=== PATIENT | male | born 1985 | race Caucasian/White ===

== ENCOUNTER 2024-06-06 09:10 | Emergency (ER) | payer BC, SELFPAY ==
[2024-06-06 09:13] VITALS: BP 180/112; PULSE 124; RESP 18; TEMP 36.6; O2SAT 98
--- NOTE | 2024-06-06 09:18 | ED.NAVMDI ---
HPI - Nausea/Vomiting/Diarrhea General Chief complaint: Nausea/Vomiting/Diarrhea Stated complaint: n/v Time Seen by Provider: 06/06/24 09:14 History of Present Illness HPI Narrative: 2-year-old male no medical problems presents to the emergency room for evaluation of nausea vomiting and diarrhea for 4 days. Patient denies any recent outside [place] travel. patient denies abdominal pain, headaches, body aches or fevers. Patient denies any blood in his emesis or stool. Denies any known ill contacts. Patient admits to heavy EtOH use Related Data Allergies Allergy/AdvReac Type Severity Reaction Status Date / Time No Known Allergies Allergy Verified 06/06/24 09:41 Review of Systems Review of Systems: ROS unremarkable except for noted in HPI Exam Narrative: GENERAL: Well-appearing, well-nourished, no physical limitations, and in no acute distress. HEAD: Normocephalic, atraumatic. EYES: Conjunctivae normal, PERRLA and EOMI. ENT: Mucous membranes dry CHEST: Clear to auscultation. No respiratory distress. No wheezes rales or rhonchi. HEART: Regular rate and rhythm. No murmur heard. Normal peripheral pulses. ABDOMEN: Soft, nontender, nondistended, normal active bowel sounds. BACK: No CVA tenderness EXTREMITIES: Normal range of motion. No edema. No clubbing or cyanosis SKIN: Warm, dry, no rash. No noted wounds NEURO: No focal deficits. Alert and oriented x3. MAEW. CN's II-XI intact bilaterally, normal gait PSYCH: Cooperative. Normal mood and affect. Course Vital Signs Vital signs: Vital Signs Temperature 36.6 C 06/06/24 09:13 Pulse Rate 124 H 06/06/24 09:13 Respiratory Rate 18 06/06/24 09:13 Blood Pressure 180/112 H 06/06/24 09:13 Pulse Oximetry 98 06/06/24 09:13 Temperature 36.6 C 06/06/24 09:13 Pulse Rate 86 06/06/24 11:50 Respiratory Rate 16 06/06/24 11:50 Blood Pressure 145/87 H 06/06/24 11:50 Pulse Oximetry 99 06/06/24 11:50 MDM - Nausea/Vomiting/Diarrhea Lab Data 06/06/24 09:47 06/06/24 11:49 Labs: Lab Results 06/06/24 06/06/24 Range/Units 09:47 11:49 WBC 12.7 H (4.5-10.0) K/mm3 RBC 5.72 (4.6-6.20) M/mm3 Hgb 19.6 H (14.0-18.0) g/dL Hct 54.1 H (42.0-52.0) % MCV 94.6 (80-100) fl MCH 34.3 H (26-34) pg MCHC 36.2 H (32-36) g/dl RDW 12.6 (11.5-14.5) % Plt Count 238 (150-375) k/mm3 MPV 9.8 (7.4-10.4) fl Immature Gran % (Auto) 0.3 (0-0.5) % Neut % (Auto) 79.8 H (45.5-73.1) % Lymph % (Auto) 11.6 L (18.3-44.2) % [place] % (Auto) 7.6 (2.6-8.5) % Eos % (Auto) 0.4 (0-4.4) % Baso % (Auto) 0.3 (0.2-1.2) % Lymph # (Auto) 1.47 (0.9-3.2) K/mm3 [place] # (Auto) 1.0 H (0.1-0.6) K/mm3 Eos # (Auto) 0.1 (0-0.3) K/mm3 Baso # (Auto) 0.0 (0.0-0.1) K/mm3 Abs Immat Gran (auto) 0.04 H (0.00-0.031) K/mm3 Absolute Neuts (auto) 10.1 H (1.3-6.7) K/mm3 Absolute Nucleated RBC 0.000 (0.0-0.012) K/mm3 Nucleated RBC % 0.0 (0.0-0.2) % Sodium 139 140 (137-145) mmol/L Potassium 4.3 5.0 (3.4-5.0) mmol/L Chloride 97 L 103 (98-107) mmol/L Carbon Dioxide 24 23 (22-30) mmol/L Anion Gap 18 H 14 H (4-12) mmol/L BUN 19 18 (9-20) mg/dL Creatinine 1.20 1.00 (0.7-1.3) mg/dL Estim Creat Clear Calc 80 95 ml/min Estimated GFR > 60 > 60 (59 - ) Glucose 163 H 118 H (65-110) mg/dL Lactic Acid 2.1 H (0.7-2.0) mmol/L Calcium 9.8 8.9 (8.4-10.2) mg/dL Total Bilirubin 2.0 H (0.2-1.3) mg/dL AST 162 H (17-59) U/L ALT 106 H (6-50) U/L Alkaline Phosphatase 123 (38-126) U/L Total Protein 10.0 H (6.3-8.2) g/dL Albumin 5.4 H (3.5-5.1) g/dL Lipase 109 (23-300) U/L Discharge Plan Discharge Clinical Impression: Dehydration, Gastroenteritis Patient Disposition: Home, Self-Care Condition: Stable Instructions: Antibiotic Form, Acute Nausea and Vomiting (ED), Acute Diarrhea (ED) Prescriptions: New o
[2024-06-06 09:57] LABS: Basophils Percent Auto 0.3 % (0.2-1.2); Eosinophils Absolute Auto 0.1 K/mm3 (0-0.3); Eosinophils Percent Auto 0.4 % (0-4.4); Hematocrit 54.1 % (42.0-52.0); Hemoglobin 19.6 g/dL (14.0-18.0); Immature Granulocyte Absolute 0.04 K/mm3 (0.00-0.031); Immature Granulocyte Percent A 0.3 % (0-0.5); Lymphocytes Absolute Auto 1.47 K/mm3 (0.9-3.2); Lymphocytes Percent Auto 11.6 % (18.3-44.2); Mean Corpuscular HGB Conc 36.2 g/dl (32-36); Mean Corpuscular Hemoglobin 34.3 pg (26-34); Mean Corpuscular Volume 94.6 fl (80-100); Mean Platelet Volume 9.8 fl (7.4-10.4); Monocytes Percent Auto 7.6 % (2.6-8.5); Neutrophils Absolute Auto 10.1 K/mm3 (1.3-6.7); Neutrophils Percent Auto 79.8 % (45.5-73.1); Platelet Count Result 238 k/mm3 (150-375); Red Blood Count 5.72 M/mm3 (4.6-6.20); Red Cell Distribution Width 12.6 % (11.5-14.5); White Blood Count 12.7 K/mm3 (4.5-10.0)
[2024-06-06 10:10] LABS: Lactic Acid Reflex 2.1 mmol/L (0.7-2.0)
[2024-06-06 10:12] LABS: Alanine Aminotransferase 106 U/L (6-50); Albumin Level 5.4 g/dL (3.5-5.1); Alkaline Phosphatase 123 U/L (38-126); Anion Gap 18 mmol/L (4-12); Aspartate Amino Transferase 162 U/L (17-59); Blood Urea Nitrogen 19 mg/dL (9-20); Calcium 9.8 mg/dL (8.4-10.2); Carbon Dioxide 24 mmol/L (22-30); Chloride 97 mmol/L (98-107); Estimated CRCL calculation 80 ml/min; Estimated Glomerular Filt Rate > 60; Glucose 163 mg/dL (65-110); Lipase 109 U/L (23-300); Potassium 4.3 mmol/L (3.4-5.0); Sodium 139 mmol/L (137-145)
[2024-06-06] MEDS: SODIUM CHLORIDE 0.9% IV 1,000 ML 999 ML IV CONT ×2 (10:12→10:50)
[2024-06-06] MEDS: DICYCLOMINE HCL INJ 20 MG/2 ML VIAL IM (10:13)
[2024-06-06] MEDS: ONDANSETRON INJ 4 MG/2 ML VIAL IV PUSH (10:13)
[2024-06-06 10:50] VITALS: BP 151/98; PULSE 85; RESP 16; O2SAT 99
[2024-06-06 11:50] VITALS: BP 145/87; PULSE 86; RESP 16; O2SAT 99
[2024-06-06 12:16] LABS: Anion Gap 14 mmol/L (4-12); Blood Urea Nitrogen 18 mg/dL (9-20); Calcium 8.9 mg/dL (8.4-10.2); Carbon Dioxide 23 mmol/L (22-30); Chloride 103 mmol/L (98-107); Estimated CRCL calculation 95 ml/min; Estimated Glomerular Filt Rate > 60; Glucose 118 mg/dL (65-110); Sodium 140 mmol/L (137-145)
[2024-06-06 12:53] LABS: Reflex Lactic Acid Yes or No Add Lactic
== END 2024-06-06 12:58 | disposition home or self-care (01) ==
PROVIDERS: Emergency Provider Nurse Practitioner Family
DX: K52.9 Noninfective gastroenteritis and colitis, unspecified (principal); E86.0 Dehydration
CPT/HCPCS: 36415; 80048; 80053; 83605; 83690; 85025; 96361; 96372; 96374; 99284; J0500; J2405; J7030